=== PATIENT | female | born 1950 | race Caucasian/White ===

== ENCOUNTER → 2017-08-28 | Outpatient (CLI) | payer MEDICARE ==
--- NOTE | 2017-08-28 16:07 | PCVCIMAG ---
APPROVED REPORT Exam: Stress Echocardiogram Indication: Dyspnea, strong family hx of early CAD Patient Location: Echo lab Stress Nurse: Bianka Ricardo RN Status: routine Ht: 5 ft 2 in HR: 65 bpm BP: 126/72 mmHg Rhythm: NSR Procedure The patient underwent an Exercise Stress Test using the Arian Protocol. Blood pressure, heart rate, and EKG were monitored. An Echocardiogram was performed by accounts payable technician in four stages in quad fashion. At peak stress, four selected images were obtained and placed side by side with resting images for comparison. Stress Test Details Stress Test: Exercise stress testing was performed using a Arian protocol. HR Resting HR: 65 bpmMax Heart Rate (APMHR): 154 bpm Max HR Achieved: 162 bpmTarget HR (85% APMHR): 130 bpm % of APMHR: 105 Recovery HR: 85 bpm HR response to stress: Normal HR response to stress BP Resting BP: 126/72 mmHg Max BP: 182/78 mmHg Recovery BP: 134/78 mmHg ECG Resting ECG: Sinus Rhythm Stress ECG: Sinus Rhythm ST Change: Horizontal ST depression Maximum ST Deviation: 2 mm Arrhythmia: APC's, VPC's Recovery ECG: Sinus Rhythm Clinical Reason for Termination: Dyspnea, Maximal effort Stress Symptoms: Dyspnea Exercise duration: 5 min 26 sec Highest Stage Achieved: Stage 2: 2.5 mph at 12% grade. Exercise capacity: 7 METs Overall Exercise Capacity for Age: Normal Angina Score: None Stress ECG Conclusion Abnormal exercise stress ECG consistent with stress-induced myocardial ischemia. Exertional breathlessness, possibly an ischemic equivalent. Jack Treadmill Score is -5.0 which is Moderate risk. Pre-Stress Echo The resting Echocardiogram showed normal left ventricular contractility with an estimated Ejection Fraction of about >55%. Normal wall motion in all segments on baseline images. Post-Stress Echo The stress Echocardiogram showed normal left ventricular contractility with an estimated Ejection Fraction of about 60-65%. Normal augmentation of wall motion in all segments on post stress images. Conclusion Clinical Response: Equivocal Exercise Capacity: Average Stress ECG Response: Ischemic Stress Echo Images: Non-ischemic The left ventricle is normal in size and wall thickness in both the rest and stress images. Suggest myocardial perfusion imaging. Other Information Study Quality: Adequate <Conclusion> The left ventricle is normal in size and wall thickness in both the rest and stress images. Suggest myocardial perfusion imaging.
== END | disposition home or self-care (01) ==
LOC: PCVCIMAG 14:02
PROVIDERS: ATTEND Internal Medicine Cardiovascular Disease
DX: R06.00 Dyspnea, unspecified (principal); Z82.49 Family history of ischemic heart disease and other diseases of the circulatory system
CPT/HCPCS: 93325; 93351